=== PATIENT | female | born 1975 | race Caucasian/White ===

== ENCOUNTER 2017-01-31 06:00 | Inpatient (IN) | payer MEDICAID ==
[~2017-01-31] VITALS: Ht 154.9 cm; Wt 77.9 kg
[~2017-01-31 06:00] MED LIST: FOLI0.4T2 PO; PRENAT PO
[2017-01-31] MEDS: LACTATED RINGER'S 1,000 ML IV SCH ×3 (06:50→16:24)
[2017-01-31 06:54] VITALS: Ht 154.9 cm; Wt 77.9 kg
[2017-01-31 06:55] VITALS: BP 125/77; PULSE 80; RESP 18
[2017-01-31] MEDS ORDERED: LIDOCAINE 1% (MPF) 30 ML INJ INJ PRN (07:00)
[2017-01-31] MEDS ORDERED: OXYTOCIN 30 UNITS/LR 500 ML IV SCH ×2 (07:00)
[2017-01-31] MEDS ORDERED: OXYTOCIN 30 UNITS/LR 500 ML IV PRN ×2 (07:00→22:00)
[2017-01-31] MEDS ORDERED: CARBOPROST 250 MCG INJ IM PRN ×2 (07:00→22:00)
[2017-01-31] MEDS ORDERED: OXYCODONE/ASPIRIN (4.88/325) TAB PO PRN ×2 (07:00→22:00)
[2017-01-31] MEDS ORDERED: BUTORPHANOL 2 MG INJ IV PRN ×2 (07:00)
[2017-01-31] MEDS ORDERED: IBUPROFEN 600 MG TAB PO PRN (07:00)
[2017-01-31] MEDS ORDERED: MISOPROSTOL 200 MCG TAB PR PRN ×2 (07:00→22:00)
[2017-01-31] MEDS ORDERED: METHYLERGONOVINE 0.2 MG INJ IM PRN ×2 (07:00→22:00)
[2017-01-31 07:18] LABS: ADD SCAN DIFF NO
[2017-01-31 07:40] LABS: INR 0.82; PARTIAL THROMBOPLASTIN TIME 24.9 Sec (25.0-35.0); PROTIME 11.3 Sec (12.2-14.2); PT RATIO 0.9
[2017-01-31] MEDS ORDERED: AMPICILLIN 2 GM/NS (PMX) 100 ML IV ONE (08:30)
[2017-01-31 08:34] LABS: BASOPHILS % 0.3 % (0.0-2.0); EOSINOPHILS # 0.1 10^3/ul (0.0-0.5); EOSINOPHILS % 0.6 % (0.0-7.0); HEMATOCRIT 42.6 % (37.0-47.0); HEMOGLOBIN 14.2 g/dl (12.0-16.0); LYMPHOCYTES # 1.2 10^3/ul (0.8-2.9); LYMPHOCYTES % 15.7 % (15.0-51.0); MEAN CORPUSCULAR HEMOGLOBIN 30.5 pg (29.0-33.0); MEAN CORPUSCULAR HGB CONC 33.3 g/dl (32.0-37.0); MEAN CORPUSCULAR VOLUME 91.4 fl (82.0-101.0); MONOCYTE # 0.4 10^3/ul (0.3-0.9); MONOCYTES % 4.8 % (0.0-11.0); NEUTROPHIL # 6.1 10^3/ul (1.6-7.5); NEUTROPHILS % 78.3 % (39.0-77.0); PLATELET COUNT 165 10^3/UL (140-415); RED BLOOD COUNT 4.66 10^6/ul (4.20-5.40); WHITE BLOOD COUNT 7.8 10^3/ul (4.8-10.8)
[2017-01-31] MEDS ORDERED: LACTATED RINGER'S 1,000 ML IV PRN (10:00)
[2017-01-31] MEDS: AMPICILLIN 1 GM/NS (PMX) 50 ML IV SCH ×3 (13:03→20:30)
[2017-01-31] MEDS ORDERED: FENTAnyl 2MCG/ML-ROPIV 0.2% 100 ML ONE (16:36)
[2017-01-31] MEDS ORDERED: ONDANSETRON 4 MG INJ IV PRN (17:30)
[2017-01-31] MEDS ORDERED: NALOXONE (0.4 MG/ML) INJ IV PRN (17:30)
[2017-01-31] MEDS ORDERED: DEXTROSE 5%-LR 1,000 ML IV SCH (17:30)
[2017-01-31] MEDS ORDERED: FENTAnyl 2MCG/ML-ROPIV 0.2% 100 ML BAG EPI SCH (17:30)
[2017-01-31] MEDS ORDERED: DIPHENHYDRAMINE 50 MG INJ IV PRN (17:30)
--- NOTE | 2017-01-31 21:49 | DELSUM ---
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 Babies in Womb: 1 Attempted: No Labor Anesthesia: Epidural LABOR INFORMATION Reason for Induction: Other Reason for Induction- Other: IUGR Onset of Labor: 01/31/2017 15:00 Complete Dilatation: 01/31/2017 20:31 Oxytocin: Induction Group B Beta Strep: Done, Result Unknown Steroids Given: None Reason Steroids Not Administered: Not Applicable MEMBRANES Membranes Rupture Method: Artificial Rupture of Membranes: 01/31/2017 15:00 Length of Rupture (hr): 5.70 Amniotic Fluid Color: Clear Amniotic Fluid Amount: Small Amniotic Fluid Odor: None STAGES OF LABOR Stage 1 hr: 5 Stage 1 min: 31 Stage 2 hr: 0 Stage 2 min: 11 Stage 3 hr: 0 Stage 3 min: 6 Total Time in Labor hr: 5 Total Time in Labor min: 48 VAGINAL DELIVERY Episiotomy: None Laceration Extension: N/A Laceration Type: None Laceration Repair: Not Applicable Initial Vag Sponge Count: 20 Final Vag Sponge Count: 20 Initial Vag Sharps Count: 1 Final Vag Sharps Count: 1 Sponge Count Correct: Yes Sharps Count Correct: Yes BABY A INFORMATION Infant Delivery Date/Time: 01/31/2017 20:42 Method of Delivery: Vaginal Born in Route : No : N/A Forceps: N/A Vacuum Extraction: N/A Shoulder Dystocia : N/A SHOULDER DYSTOCIA BABY A Delivery Date/Time: 01/31/2017 20:42 PRESENTATION/POSITION BABY A Presentation: Cephalic Cephalic Presentation: Vertex Vertex Position: Right Occipital Anterior Breech Presentation: N/A PLACENTA INFORMATION BABY A Placenta Delivery Time : 01/31/2017 20:48 Placenta Method of Delivery: Spontaneous Placenta Status: Delivered SCORES BABY A Heart Rate 1 min: >100 bpm Resp Effort 1 min: Good Cry Reflex Irritability 1 min: Cough/Sneeze/Pulls Away Muscle Tone 1 min: Active Motion Color 1 min: Body [place], Extremit Blue Resuscitation Effort 1 min: Tactile Stimulation SCORE 1 MIN: 9 Heart Rate 5 min: >100 bpm Resp Effort 5 min: Good Cry Reflex Irritability 5 min: Cough/Sneeze/Pulls Away Muscle Tone 5 min: Active Motion Color 5 min: Body [place], Extremit Blue Resuscitation Effort 5 min: Tactile Stimulation SCORE 5 MIN: 9 INFORMATION BABY A Gestational Age at Delivery: 38.1 Gestational Status: Early Term- 37- 38.6 Weeks Outcome : Liveborn Condition : Stable Sex: Male IDENTIFICATION/MEDS BABY A ID Band Location: Right Leg; Left Arm Sensor Applied: Yes Sensor Location : Cord Clamp Vitamin K Given : Not Given Erythromycin Given: Not Given WEIGHT/LENGTH BABY A Birthweight (gm): 2960 Infant Weight (lb): 6 Weight (oz): 8 Length (in): 17.50 Length (cm): 44.45 CORD INFORMATION BABY A No. Cord Vessels: 3 Nuchal Cord : Around Neck x1, Loose Cord Blood Taken: Yes Suction: Mouth; Nose ASSESSMENT BABY A Infant Complications: None Physical Findings at Delivery: Within Normal Limits Respirations: Appears Normal Parts Cataloguer/ALS Called : No Infant Care By: YAKELIN EGAN RN CHARGE Transferred To: Remains with Mother
[2017-01-31] MEDS ORDERED: LACTATED RINGER'S 1,000 ML IV* SCH (21:55)
--- NOTE | 2017-01-31 21:59 | LDN ---
Date/Time of Note Date/Time of Note DATE: 01/31/17 TIME: 21:57 Delivery Summary of a viable baby boy weighing 2960 grams or 6# 8oz, 17.5" long, and with Apgars of 9/9. Placenta Delivered: Spontaneously Meconium: none Perineum intact?: Yes Anesthesia type: Epidural Estimated blood loss: 200 Sponge & Needle done & correct: Yes All needle counts correct: Yes Any foreign bodies felt in the: No (vagina) Problems: Delivery Information Sex Infant Sex: male Apgars 1 Minute: 9 5 Minute: 9 Suctioning Nose & mouth suctioned at tori: No Delee suction performed: No Umbilical Cord Umbilical cord with: 3 Vessels Cord presentations: nuchal cord Nuchal cord present X: 1 Cord Blood was obtained: Yes Mother & Baby Disposition Disposition Mom & Baby to Maternity; Good: Yes Baby to NICU: No MARVEL ROME MD Jan 31, 2017 21:59
[2017-01-31] MEDS ORDERED: LANOLIN 7 GM TUBE TOP PRN (22:00)
--- NOTE | 2017-01-31 22:09 | HP ---
Date/Time of Note Date/Time of Note DATE: 01/31/17 TIME: 22:00 OB - History Hx of Present Free Text/Dictation 41 y.o. A1 with an IUP at 38 weeks scheduled for induction due to severe IUGR. Pt has gestational diabetes and is of advanced maternal age. Estimated Due Date: Feb 13, 2017 : 4 Para: 2 Therapeutic : 1 Care: Good Care Ultrasounds: Normal mid trimester US, Abnormal US findings Abnormal Ultrasound Findings: Severe asymmetrical IUGR. Obstetrical Complications: Gestational Diabetes, Growth Restriction Past Family/Social History * Past Medical, Surgical, Family and Obstetric Histories reviewed from chart. Blood Type: O+ Rubella: immune RPR/VDRL: Negative GBS Status: Unknown HBsAG: Negative OB Admission Exam Vital Signs Vital Signs Vital Signs Date Time Temp Pulse Resp B/P Pulse Ox O2 Delivery O2 Flow Rate FiO2 01/31/17 06:55 98.4 80 18 125/77 Room Air Physical Exam HEENT: WNL Heart: Rhythm Normal Lungs: Clear Abdomen: WNL Extremities: Normal Reflexes: Normal Cervical Dilatation: 2cm Effacement: 50% Station: -3 Membranes: Intact Heart Rate: 140's Accelerations: Accelerations Present Decelerations: No Decelerations Varibility: Moderate Contractions on Admission: None Last 72 hourBlood Glucose Bedside Glucose - 72 Hours Test 01/31/17 12:58 01/31/17 17:14 01/31/17 18:16 01/31/17 21:15 Bedside Glucose 68mg/dL (70-220) L 62mg/dL (70-220) L 97mg/dL (70-220) 85mg/dL (70-220) Last 72 hours Lab Results CBC & BMP 01/31/17 06:50 OB Assessment/Plan Reason for admission: induction of labor Other Assessment: Severe asymmetrical IUGR. Gestational diabetes. AMA. Plan: Induction Induction Method: per Pitocin Protocol MARVEL ROME MD Jan 31, 2017 22:08
[2017-01-31 23:15] VITALS: BP 129/73; PULSE 72; RESP 18
[2017-01-31] MEDS: IBUPROFEN 600 MG TAB PO SCH (23:52)
[2017-02-01 04:07] VITALS: BP 102/69; PULSE 75; RESP 18
[2017-02-01] MEDS: IBUPROFEN 600 MG TAB PO SCH ×3 (05:13→17:41)
[2017-02-01] MEDS: ACCU-CHEK XX SCH (07:19)
[2017-02-01 07:59] LABS: ADD SCAN DIFF NO
[2017-02-01 08:00] VITALS: BP 99/67; PULSE 69; RESP 18
[2017-02-01 08:15] LABS: BASOPHILS % 0.2 % (0.0-2.0); EOSINOPHILS # 0.1 10^3/ul (0.0-0.5); EOSINOPHILS % 0.5 % (0.0-7.0); HEMATOCRIT 36.7 % (37.0-47.0); HEMOGLOBIN 12.1 g/dl (12.0-16.0); LYMPHOCYTES # 1.5 10^3/ul (0.8-2.9); LYMPHOCYTES % 14.8 % (15.0-51.0); MEAN CORPUSCULAR HEMOGLOBIN 30.3 pg (29.0-33.0); MEAN CORPUSCULAR VOLUME 91.8 fl (82.0-101.0); MONOCYTE # 0.7 10^3/ul (0.3-0.9); MONOCYTES % 6.9 % (0.0-11.0); NEUTROPHIL # 7.6 10^3/ul (1.6-7.5); PLATELET COUNT 132 10^3/UL (140-415); RED CELL DISTRIBUTION WIDTH 14.1 % (11.5-14.5); WHITE BLOOD COUNT 9.9 10^3/ul (4.8-10.8)
[2017-02-01] MEDS ORDERED: INFLUENZA VIRUS VACCINE 0.5 ML (DISPENSING) IM* ONE (12:00)
[2017-02-01 16:18] VITALS: BP 99/55; PULSE 72; RESP 18
--- NOTE | 2017-02-01 19:35 | QN ---
Documentation Comment PPD #1 s/p Mom and baby are doing well. Breast feeding is going well. T=97.9 BP 99/55 Fundus is firm Lochia minimal. Ext NT, no edema. WBC 9.9 Hgb 12.1 P" continue care and plan d/c for tomorrow. MARVEL ROME MD Feb 01, 2017 19:34
[2017-02-01 20:00] VITALS: BP 118/74; PULSE 76; RESP 18
[2017-02-02] MEDS: IBUPROFEN 600 MG TAB PO SCH ×3 (00:11→11:19)
[2017-02-02 04:05] VITALS: BP 101/53; PULSE 72; RESP 18
[2017-02-02] MEDS: ACCU-CHEK XX SCH (06:50)
[2017-02-02 08:45] VITALS: BP 122/76; PULSE 81; RESP 16
[2017-02-02] MEDS ORDERED: DIPHTH/TET/ACEL PERTUSS (ADULT) 0.5 ML VIAL IM* ONE (09:00)
--- NOTE | 2017-02-02 10:17 | PD.PPDC ---
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
--- NOTE | 2017-02-02 10:26 | DS ---
Date/Time of Note Date/Time of Note DATE: 02/02/17 TIME: 10:19 Obstetrical Discharge Record Final Diagnosis Final Diagnosis: Term delivered Vaginal Delivery Obstetrical Delivery: Spontaneous Complications Other (IUGR) Augmentation: Yes Induction: Yes Condition on Discharge Physical Assessment Last Vitals: T=98.0 BP 101/53 Voiding: Yes Bowel Movement: Yes Breast: Filling Fundus: Firm Calf Tenderness: No Patient Condition: Good MARVEL ROME MD Feb 02, 2017 10:26
[2017-02-03] MEDS ORDERED: INFLUENZA VIRUS VACCINE 0.5 ML (DISPENSING) IM* ONE (09:00)
== END 2017-02-02 14:52 | disposition home or self-care (01) | DRG 775 ==
LOC: L-D 06:23 → PP1 23:10
PROVIDERS: ADMIT Obstetrics & Gynecology; ATTEND Obstetrics & Gynecology
PROC: 10907ZC Drainage of Amniotic Fluid, Therapeutic from Products of Conception, Via Natural or Artificial Opening (ICD-10-PCS; 2017-01-31)
PROC: 10E0XZZ Delivery of Products of Conception, External Approach (ICD-10-PCS; principal; 2017-01-31 06:00)
DX: O36.5930 Maternal care for other known or suspected poor fetal growth, third trimester, not applicable or unspecified (principal); O24.429 Gestational diabetes mellitus in childbirth, unspecified control; O09.523 Supervision of elderly multigravida, third trimester; Z3A.38 38 weeks gestation of pregnancy; Z37.0 Single live birth
CPT/HCPCS: 62319; 82962; 85025; 85610; 85730; 86592; 86900; 86901; 90715; J0290; J2590; J3010; J7120; J7121

== ENCOUNTER 2017-07-11 08:34 | Emergency (ER) | payer MEDICAID, OTHER ==
[~2017-07-11] VITALS: Ht 160 cm; Wt 73.0 kg
[2017-07-11 08:35] VITALS: Ht 160 cm; Wt 73.0 kg
[2017-07-11] MEDS ORDERED: LIDOCAINE 1% (MDV) 20 ML INJ SC ONE (09:30)
--- NOTE | 2017-07-11 09:38 | ERD ---
ER Documentation Chief Complaint Date/Time DATE: 07/11/17 TIME: 09:36 Chief Complaint rt hand numbness x 2 weeks , abcess on lt side of face HPI 41-year-old female otherwise healthy presents with right hand numbness for the past 2 weeks, she also has had left-sided facial abscess for the past 6 months. She reports she has diffuse numbness, during the day as well as during the night. She has not had any trauma, neck pain, weakness with this. She denies dizziness, blurry vision. She also has had this left-sided facial swelling with bad odor with drainage, it has been there for 6 months but the odor has been ongoing for the past week. She has not had any fevers or chills. ROS All systems reviewed and are negative except as per history of present illness. Medications Home Meds Reported Medications Folic Acid* (Folic Acid*) 0.4 Mg Tablet, 0.4 MG PO DAILY, TAB 10/20/16 Multivit/Min/Fol Ac/Iron/Pren* ( S*) 1 Tab Tab, 1 TAB PO DAILY, TAB 10/20/16 Allergies Allergies: Coded Allergies: No Known Drug Allergy (Verified Allergy, Unknown, 10/20/16) PMhx/Soc History of Surgery: No Anesthesia Reaction: No Hx Neurological Disorder: No Hx Respiratory Disorders: No Hx Cardiac Disorders: No Hx Psychiatric Problems: No Hx Miscellaneous Medical Probl: Yes (anemia, DIABETES) Hx Alcohol Use: No Hx Substance Use: No Hx Tobacco Use: No Physical Exam Vitals Vital Signs Date Time Temp Pulse Resp B/P Pulse Ox O2 Delivery O2 Flow Rate FiO2 07/11/17 08:35 98.8 69 18 116/74 100 Physical Exam General: Well-developed, well-nourished. The patient appears in no acute distress. HEENT: Head is normocephalic, atraumatic. No scleral icterus. Extraocular movements intact, eyes are Judy Neck: Supple. Nontender. Lungs: Clear to auscultation. Normal air movement. Heart: Regular rate and rhythm. S1 and S2 are normal. No murmurs, gallops, or rubs. Abdomen: Soft, nontender, nondistended. Bowel sounds are normoactive. Extremities: No clubbing or cyanosis. Normal pulses. Moving extremities x 4. No weakness. Neurologic: Alert and oriented 3. No focal deficits. Speech and gait normal, finger to nose normal. Ambulatory Skin: 1.5 cm area of fluctuance preauricular on the left side of the face. Results 24 hrs Current Medications Medications (Trade) Dose Ordered Sig/Bulmaro Route PRN Reason Start Time Stop Time Status Last Admin Dose Admin Lidocaine (Xylocaine 1% (Mdv) 20 ml) 20 ml ONCE ONCE SC 07/11/17 09:30 07/11/17 09:31 DC Procedures/MDM Abscess Incision and Drainage with irrigation by me: Location: Left side of face Anesthesia: Local 1% Lidocaine Technique: Irrigated. Disrupted loculations w/ instrumentation Packing: None Complications: Neurovascularly intact post procedure 48 hour wound check. Scar minimization instructions given. Patient's skin symptoms have stabilized while they have been evaluated in the department and are appropriate for outpatient care and work up. Exam and w/u not consistent w/ sepsis, deep space infection, or foreign body. Medical decision makin-year-old female presents with left-sided preauricular abscess that was incised and drained, large amount of purulent material was removed, there is no surrounding cellulitis, evidence of otitis media, otitis externa. No signs of deep space infection. Additionally she comes in with right hand numbness, she has not had any weakness, or signs of stroke, and her neurologic examination is intact. I do not suspect any signs that are concerning for TIA or stroke. This is likely peripheral paresthesias that have been ongoing for 2 weeks, I have advised her to follow-up with neurology as outpatient. Departure Diagnosis: Primary Impression: Numbness Additional Impression: Abscess Condition: Good Patient Instructions: Abscess, Incision And Drainage, Neuropathy, Peripheral JEFFERSON YEPEZ PA-C Jul 11, 2017 09:38
== END 2017-07-11 10:03 | disposition home or self-care (01) ==
LOC: FTE 08:34
DX: R20.0 Anesthesia of skin (principal); L02.01 Cutaneous abscess of face; E11.9 Type 2 diabetes mellitus without complications
CPT/HCPCS: 10060; Z7502; Z7610

== ENCOUNTER 2018-02-17 10:36 | Emergency (ER) | END 2018-02-17 13:43 | disposition home or self-care (01) ==

== ENCOUNTER 2019-03-14 15:39 | Emergency (ER) | payer OTHER ==
[~2019-03-14] VITALS: Ht 157.5 cm; Wt 77.0 kg
[~2019-03-14 15:39] MED LIST changes: +IBUP-1542 PO
[2019-03-14 16:02] VITALS: Ht 157.5 cm; Wt 77.0 kg
[2019-03-14] MEDS ORDERED: IBUPROFEN 800 MG TAB PO ONE (17:30)
[2019-03-14] MEDS ORDERED: IRON1TAB78 PO (18:30)
[2019-03-14 18:38] VITALS: BP 120/75; PULSE 75; RESP 16
--- NOTE | 2019-03-14 19:12 | ERD ---
ER Documentation Chief Complaint Chief Complaint Body aches, SABILL[place], weakness X 1 wk HPI Patient is a 43-year-old female who presents with "bone pain". She said that she has had the symptoms for the past 3 weeks. The pain is been constant. They have worsened over the past 2 days. She said that she has headache as well. She tried Advil and Tylenol. She says that her most recent period has lasted 2 weeks and that she might be anemic. Upon review of old medical records the patient has multiple visits to the ER for various complaints. She does not currently have a primary doctor. ROS All systems reviewed and are negative except as per history of present illness. Medications Home Meds Active Scripts Iron,Carbonyl/Vit C/Vit B12/Fa (IRON 100 PLUS TABLET) 1 Each Tablet, 1 EACH PO DAILY, #30 TAB Prov:JULIANE CAROLINA MD 03/14/19 Ibuprofen* (Motrin*) 600 Mg Tab, 600 MG PO Q6, #30 TAB Prov:LACEY MERCADO PA-C 02/17/18 Reported Medications Folic Acid* (Folic Acid*) 0.4 Mg Tablet, 0.4 MG PO DAILY, TAB 10/20/16 Multivit/Min/Fol Ac/Iron/Pren* ( S*) 1 Tab Tab, 1 TAB PO DAILY, TAB 10/20/16 Allergies Allergies: Coded Allergies: No Known Drug Allergy (Verified Allergy, Unknown, 10/20/16) PMhx/Soc History of Surgery: No Anesthesia Reaction: No Hx Neurological Disorder: No Hx Respiratory Disorders: No Hx Cardiac Disorders: No Hx Psychiatric Problems: No Hx Miscellaneous Medical Probl: Yes (anemia, DIABETES) Hx Alcohol Use: No Hx Substance Use: No Hx Tobacco Use: No Smoking Status: Never smoker FmHx Family History: diabetes Physical Exam Vitals Vital Signs Date Temp Pulse Resp B/P (MAP) Pulse Ox O2 O2 Flow FiO2 Time Delivery Rate 03/14/19 98.3 75 16 120/75 99 Room Air 18:38 (90) 03/14/19 98.6 96 18 124/70 99 16:02 (88) Physical Exam Const: Mild distress Head: Atraumatic Eyes: Normal Conjunctiva ENT: Normal External Ears, Nose and Mouth. Neck: Full range of motion. No meningismus. Resp: Clear to auscultation bilaterally Cardio: Regular rate and rhythm, no murmurs Abd: Soft, non tender, non distended. Normal bowel sounds Skin: No petechiae or rashes Back: No midline or flank tenderness Ext: No cyanosis, or edema, patient has pain with multiple points to palpation across her extremities and legs bilaterally Neur: Awake and alert Psych: Normal Mood and Affect Result Diagram: 03/14/19 1735 03/14/19 1735 Results 24 hrs Laboratory Tests Test 03/14/19 17:32 03/14/19 17:35 03/14/19 17:37 Urine Color YELLOW Urine Clarity SLIGHTLY CLOUDY Urine pH 6.0 Urine Specific [place] 1.025 Urine Ketones NEGATIVE mg/dL Urine Nitrite NEGATIVE mg/dL Urine Bilirubin NEGATIVE mg/dL Urine Urobilinogen NEGATIVE mg/dL Urine Leukocyte Esterase NEGATIVE Landon/ul Urine Microscopic RBC 1 /HPF Urine Microscopic WBC 1 /HPF Urine Squamous Epithelial Cells MODERATE /HPF Urine Hemoglobin NEGATIVE mg/dL Urine Glucose NEGATIVE mg/dL Urine Total Protein NEGATIVE mg/dl White Blood Count 5.4 10^3/ul Red Blood Count 3.81 10^6/ul Hemoglobin 9.9 g/dl Hematocrit 31.9 % Mean Corpuscular Volume 83.7 fl Mean Corpuscular Hemoglobin 26.0 pg Mean Corpuscular 31.0 g/dl Hemoglobin Concent Red Cell Distribution Width 16.0 % Platelet Count 283 10^3/UL Mean Platelet Volume 11.4 fl Immature Granulocytes % 0.200 % Neutrophils % 57.1 % Lymphocytes % 32.8 % Monocytes % 6.9 % Eosinophils % 2.4 % Basophils % 0.6 % Nucleated Red Blood Cells % 0.0 /100WBC Immature Granulocytes # 0.010 10^3/ul Neutrophils # 3.1 10^3/ul Lymphocytes # 1.8 10^3/ul Monocytes # 0.4 10^3/ul Eosinophils # 0.1 10^3/ul Basophils # 0.0 10^3/ul Nucleated Red Blood Cells # 0.0 10^3/ul Sodium Level 143 mmol/L Potassium Level 4.3 mmol/L Chloride Level 105 mmol/L Carbon Dioxide Level 28 mmol/L Anion Gap 10 Blood Urea Nitrogen 14 mg/dl Creatinine 0.77 mg/dl Est Glomerular Filtrat > 60 mL/min Rate mL/min Glucose Level 81 mg/dl Calcium Level 10.1 mg/dl Total Bilirubin 0.2 mg/dl Direct Bilirubin 0.00 mg/dl Indirect Bilirubin 0.2 mg/dl Aspartate Amino 28 IU/L Transf (AST/SGOT) Alanine 20 IU/L Aminotransferase (ALT/SGPT) Alkaline Phosphatase 81 IU/L Total Protein 8.7 g/dl Albumin 4.9 g/dl Globulin 3.80 g/dl Albumin/Globulin Ratio 1.28 Lipase 160 U/L POC Beta HCG, Qualitative NEGATIVE Current Medications Medications Dose Sig/Bulmaro Start Time Status Last (Trade) Ordered Route PRN Stop Time Admin Dose Reason Admin Ibuprofen 800 mg ONCE ONCE 03/14/19 DC 03/14/19 (Motrin) PO 17:30 17:41 03/14/19 17:31 Procedures/MDM Patient is a 43-year-old female presents with whole body pain. Laboratory studies show mild anemia of 9.9 but she does not require transfusion. Other laboratory studies are normal. Urinalysis is negative for infection and urine test is negative. I doubt or ectopic . I doubt serious etiology of her pain. I believe outpatient management is appropriate but she will need close follow-up with a local clinics within 1 to 2 days. She can return for any worsening symptoms. She will be given a prescription for iron and multivitamin. Departure Diagnosis: Primary Impression: Anemia Anemia type: unspecified type Qualified Codes: D64.9 - Anemia, unspecified Additional Impression: Weakness Condition: Fair Patient Instructions: Anemia, Weakness, Unk Cause [facility]errals[facility] Usted se sabillon hecho un examen mdico de control que le indica que no est en daphney condicin que requiera tratamiento urgente en el Departamento de Emergencia. Un estudio ms profundo y el tratamiento de medellin condicin pueden esperar sin ningn riesgo hasta que usted sea atendida/o en el consultorio de medellin mdico o daphney clnica. Es responsabilidad suya arreglar daphney grupo para el seguimiento del ekaterina. MANEJO DE CONDICIONES NO URGENTES EN EL FUTURO 1) Si usted tiene un mdico de atencin primaria: Usted debera llamar a medellin mdico de atencin primaria antes de venir al departamento de emergencia. Despus de las horas de consultorio, medellin doctor o medellin asociado/a est disponible por telfono. El mdico o enfermero de eden en el servicio telefnico puede asesorarle por messi medio para atender el problema, o ekaterina contrario se puede programar daphney grupo. 2) Si usted no tiene un mdico de atencin primaria: Llame al mdico o clnica de referencia que aparece abajo jason las horas de consultorio para hacer daphney grupo para que le vean. CLINICAS: [place] [address] [phone] [facility] [phone] [facility] [phone] [address] [facility] [place] [address] [phone] [facility] [place] [address] [phone] [facility] [phone] [address] Additional Instructions: Llame al doctor MAANA y keron daphney GRUPO PARA DENTRO DE 1-2 PARKER.Dgale a la secretaria que nosotros le instruimos hacer esta grupo.Avise o llame si medellin condicin se empeora antes de la grupo. Regresa aqui si peor o no mejor. JULIANE CAROLINA MD Mar 14, 2019 19:12
== END 2019-03-14 18:39 | disposition home or self-care (01) ==
LOC: FTE 15:39
DX: D64.9 Anemia, unspecified (principal); E11.9 Type 2 diabetes mellitus without complications
CPT/HCPCS: 36415; 80053; 81001; 81025; 83690; 85025; Z7502; Z7610; 81003; 99283